=== PATIENT | male | born 1955 | race Caucasian/White ===

== ENCOUNTER 2018-07-27 03:55 | Outpatient (CLI) | payer BC, SELFPAY ==
--- NOTE | 2018-07-27 09:27 | DI.RAD_ITS ---
SYMPTOM/DIAGNOSIS: SHOULDER PAIN, M25.512 LEFT SHOULDER: Glenohumeral joint space narrowing and sclerosis and periarticular hypertrophic spurring are demonstrated. There is a tiny calcification in the soft tissues adjacent to the greater tuberosity consistent with peritendinitis calcaria. Mild AC joint DJD is noted as well. IMPRESSION: Severe degenerative changes involving the left shoulder are demonstrated.
== END 2018-07-27 04:15 ==
PROVIDERS: PCP Internal Medicine; Visit Provider Internal Medicine
DX: M25.512 Pain in left shoulder (principal); M19.012 Primary osteoarthritis, left shoulder
CPT/HCPCS: 73030

== ENCOUNTER 2019-03-07 10:23 | Outpatient (CLI) | payer BC, SELFPAY ==
--- NOTE | 2019-03-07 10:11 | DI.RAD_ITS ---
EXAM: XR SHOULDER RT COMPLETE 2+V INDICATION: right shoulder pain. COMPARISON: No prior for comparison. TECHNIQUE: 2D digital imaging was performed. FINDINGS: At the glenohumeral joint, there is moderate joint space narrowing and subchondral sclerosis. There i s an osteophyte seen at the inferior aspect of the humeral head. There are mild hypertrophic changes seen at the acromioclavicular joint. No acute fracture or dislocation is seen. The soft tissues are unremarkable. IMPRESSION: Moderate degenerative changes of the right shoulder.
== END 2019-03-07 10:43 ==
PROVIDERS: PCP Internal Medicine; Visit Provider Physician Assistant
DX: M25.511 Pain in right shoulder (principal); M19.011 Primary osteoarthritis, right shoulder
CPT/HCPCS: 73030

== ENCOUNTER 2020-04-30 13:24 | Outpatient (CLI) | payer OTHER, SELFPAY ==
--- NOTE | 2020-04-30 11:45 | DI.RAD_ITS ---
EXAM: XR KNEE LT 4V+ CLINICAL HISTORY: knee pain. TECHNIQUE: 2D digital imaging was performed. COMPARISON: No previous for comparison. FINDINGS: BONES: No acute fracture is present. No bony destructive lesion is seen. JOINTS: The knee is normally aligned. There is a joint effusion. Moderate degenerative changes are s een in all 3 joint compartments of the knee characterized by joint space narrowing, marginal osteophy verenice and chondrocalcinosis. SOFT TISSUE: There are broken orthopedic wires within and around the patella consistent with prior in ternal fixation. There is a 2 cm broken wire in the soft tissues medial to the femoral condyle. The re is a a 3.5 cm broken wire in the soft tissues anterior to the proximal tibia. IMPRESSION: 1. Findings of prior patellar surgery. Broken orthopedic wires are seen in the round the patella and within the soft tissues. 2. There are 2 broken wires seen in the soft tissues around the knee. One lies medial to the medial femoral condyle. The 2nd lies anterior to the anterior tibial tuberosity. 3. Moderate osteoarthritis. Joint effusion. DATA REPOSITORY: RADIATION DOSE DELIVERED:
== END 2020-04-30 13:44 ==
PROVIDERS: PCP Internal Medicine; Referring Provider Internal Medicine; Visit Provider Physician Assistant
DX: M17.12 Unilateral primary osteoarthritis, left knee (principal); T84.498A Other mechanical complication of other internal orthopedic devices, implants and grafts, initial encounter; M25.562 Pain in left knee
CPT/HCPCS: 73564

== ENCOUNTER 2020-05-14 10:25 | Outpatient (CLI) | payer OTHER, SELFPAY ==
--- NOTE | 2020-05-14 10:00 | DI.RAD_ITS ---
EXAM: XR KNEE LT 3V AP,LAT,BETINA CLINICAL HISTORY: F/u. TECHNIQUE: 2D digital imaging was performed. COMPARISON: CR CHEST 2 VIEWS PA,LAT from 05/31/2012 CR XR KNEE LT 4V+ from 04/30/2020 FINDINGS: BONES: No acute fracture is present. No bony destructive lesion is seen. There again seen broken wir es associated with the prior patellar repair. JOINTS: The knee is normally aligned. There is a small joint effusion. Moderate degenerative changes are seen in the knee characterized by joint space narrowing and periarticular spurring. Chondrocalc inosis is present. SOFT TISSUE: There has been interval removal of the broken wire which was anterior to the tibial tube rosity. The wire in the soft tissues medial to the medial femoral condyle is still present. IMPRESSION: 1. Interval removal of the wire previously seen anterior to the tibial tuberosity. 2. Stable wire in the soft tissues medial to the knee. DATA REPOSITORY: RADIATION DOSE DELIVERED:
== END 2020-05-14 10:45 ==
PROVIDERS: PCP Internal Medicine; Referring Provider Internal Medicine; Visit Provider Student in an Organized Health Care Education/Training Program
DX: T84.498A Other mechanical complication of other internal orthopedic devices, implants and grafts, initial encounter (principal)
CPT/HCPCS: 73562

== ENCOUNTER 2020-05-16 03:02 | Outpatient (CLI) | payer OTHER, SELFPAY ==
--- NOTE | 2020-05-16 09:00 | DI.CT_ITS ---
EXAM: CT UPPER EXTREMITY LT WO CLINICAL HISTORY: Preop planning/ templating,ARTHRITIS LT GLENOHUMERAL JOINT,M19.012. TECHNIQUE: Imaging Protocol: Axial computed tomography images with coronal and sagittal reformatted images were created and reviewed. COMPARISON: No exams were available for comparison FINDINGS: Multiple contiguous axial images of the left shoulder were obtained for pre-surgical planning. Gail beck degenerative changes are seen at the glenohumeral joint with joint space narrowing, subchondral scl erosis and cysts and periarticular spurring. IMPRESSION: Marked osteoarthritis of the left glenohumeral joint. RADIATION DOSE DELIVERED: 786.56mGy.cm Total DLP 786.56mGy.cm Total DLP DATA REPOSITORY: All CT scans at this facility are submitted to the National Radiology Data Registry (NRDR) Dose Index Registry (DIR) with the [employer] ([employer]). RADIATION OPTIMIZATION: All CT scans at this facility use at least one of these dose optimization te chniques: automated exposure control; mA and/or kV adjustment per patient size (includes targeted exa ms where dose is matched to clinical indication); or iterative reconstruction.
== END 2020-05-16 03:22 ==
PROVIDERS: PCP Internal Medicine; Visit Provider Student in an Organized Health Care Education/Training Program
DX: M19.012 Primary osteoarthritis, left shoulder (principal)
CPT/HCPCS: 73200

== ENCOUNTER 2021-01-07 01:37 | Outpatient (CLI) | payer OTHER, SELFPAY ==
[2021-01-07 11:23] LABS: Source Nasal/Nares
[2021-01-07 14:14] LABS: COVID-19 PCR Negative (Negative)
== END 2021-01-07 01:38 | disposition home or self-care (01) ==
LOC: LBO 01:37
PROVIDERS: PCP Internal Medicine; Visit Provider Student in an Organized Health Care Education/Training Program
DX: Z20.822 Contact with and (suspected) exposure to COVID-19 (principal); Z01.818 Encounter for other preprocedural examination
CPT/HCPCS: 87635

== ENCOUNTER 2021-01-09 06:21 | Inpatient (IN) | payer OTHER, SELFPAY ==
[2021-01-09] VITALS (14 sets, daily range): BP systolic 104–140; BP diastolic 56–88; PULSE 62–93; RESP 12–20; TEMP 36.2–36.9; O2SAT 94–98; BMI 25.0
--- NOTE | 2021-01-09 | DI.RAD_ITS ---
Exam(s) XR KNEE LT 1V EXAM: XR KNEE LT 1V CLINICAL HISTORY: Postop. TECHNIQUE: 2D digital imaging was performed of the left knee. One view was obtained. AP view was o btained. COMPARISON: CR XR KNEE LT 3V AP,LAT,BETINA from 05/14/2020 FINDINGS: BONES: No acute fracture is present. No bony destructive lesion is seen. JOINTS: The knee is normally aligned. No joint effusion is seen. There are mild degenerative changes seen in the knee with periarticular spurring present. SOFT TISSUE: The previously seen wire in the medial soft tissues has been removed. There are again s een broken wires in the patella. IMPRESSION: Interval removal of the wire from the medial soft tissues. DATA REPOSITORY: RADIATION DOSE DELIVERED:
[2021-01-09] MEDS: Lactated Ringers 1,000 ML 100 ML IV ×2 (06:41→13:25)
--- NOTE | 2021-01-09 07:01 | W.ANESPRE ---
General Info Date of Service Date Performed: 01/09/21 Height: 5 ft 8 in Weight: 74.7 kg Body Mass Index (BMI): 25.0 Surgical Procedure: Operation Date: 01/09/21 07:40 Proposed Procedures Side Surgeon p REVERSE TOTAL SHOULDER AND ANY OTHER INDICATED PROCEDURE Left Fermin Flannery MD s Shoulder Bicep Tenodesis Left Fermin Flannery MD Meds Allergies and Home Medications Allergies Allergy/AdvReac Type Severity Reaction Status Date / Time No Known Allergies Allergy Verified 01/09/21 06:08 Home Medication Medication Instructions Recorded albuterol sulfate 2 puff INHALATION PRN PRN 06/12/13 azelastine-fluticasone [Dymista] 1 spry INHALATION PRN PRN 06/12/13 fluticasone propionate [Flovent 2 puff INHALATION PRN PRN 06/12/13 Hfa] aspirin 1 tab PO DAILY 06/14/14 acetaminophen 500 mg capsule 500 mg PO Q6H PRN #60 cap 04/30/20 celecoxib 100 mg capsule 100 mg PO BID PRN #90 cap 09/13/20 Current Visit Medications: Current Medications Generic Name Dose Route Start Last Admin Trade Name Freq PRN Reason Stop Dose Admin Ringer's Solution 1,000 mls @ 100 mls/hr 01/09/21 06:00 01/09/21 06:41 IV 02/07/21 23:59 100 mls/hr INFUSION MADY Administration Cefazolin Sodium 2,000 mg/ 100 mls @ 200 mls/hr 01/09/21 06:00 Sodium Chloride IVPB 01/09/21 16:00 PREOP MADY Tranexamic Acid 1,000 mg/ 60 mls @ 360 mls/hr 01/09/21 06:00 Sodium Chloride IVPB 01/09/21 16:00 PREOP MADY IV Miscellaneous Supplies 1 each 01/09/21 06:00 Iv Access IV 02/07/21 23:59 DIRECTED MADY Sodium Chloride 0 ml 01/09/21 06:00 Normal Saline Flush 10 Ml Syr IV 02/07/21 23:59 PRN PRN Sodium Chloride 0 ml 01/09/21 06:00 Normal Saline 10 Ml Vial IJ 02/07/21 23:59 DIRECTED PRN Sterile Water 0 ml 01/09/21 06:00 Water,Injection,Sterile 10 Ml Vial IJ 02/07/21 23:59 DIRECTED PRN PFSH Active Problems Active Problems: Problem Status Onset Code Arthritis of left glenohumeral joint M19.012 Left rotator cuff tear M75.102 Tendinitis of long head of biceps brachii of left shoulder M75.22 Contracture of left shoulder M24.512 Bursitis of left shoulder M75.52 Bursitis of right shoulder M75.51 Contracture of right shoulder M24.511 Tendonitis of long head of biceps brachii of right shoulder M75.21 Rotator cuff tear, right M75.101 Arthritis of right glenohumeral joint M19.011 Painful orthopaedic hardware T84.84XA Exposed orthopaedic hardware T84.498A History of patellar fracture Z87.81 Medical History Medical History Asthma Exposed orthopaedic hardware left patellar ORIF wire TIA (transient ischemic attack) (~04/2009) Pt. stated the only thing is required to do for this was take a full strength aspirin 325 mg daily. No residual effects, weakness or cognitive deficits stated by pt. Surgical History Surgical History History of patellar fracture Left patella s/p ORIF - 1980 Tobacco Smoking/Tobacco Use Status: Current-Occasional Tobacco Type: cigarettes Alcohol Alcohol Intake: current Alcohol intake frequency: a few times a week Substance Use Substance use: Never Substance use type: does not use Vital Signs and Lab Results Vital Signs Most Recent Vital Signs in EMR: Most Recent Vital Signs Temp Pulse Resp BP Pulse Ox 36.3 C L 75 18 140/88 96 01/09/21 06:00 01/09/21 06:00 01/09/21 06:00 01/09/21 06:00 01/09/21 06:00 Lab Results Blood Type / Crossmatch: No Data to Display Complete Blood Count: No Data to Display Complete Metabolic Panel: No Data to Display Liver Function Panel: No Data to Display Coagulation Panel: No Data to Display Cardiac Panel: No Data to Display Arterial Blood Gas: No Data to Display Venous Blood Gas: No Data to Display Pancreas Panel: No Data to Display Thyroid Panel: No Data to Display Infectious Disease: Coronavirus (COVID-19)(PCR) Negative (Negative) 01/07/21 10:01/07/21 Coronavirus 2019 Source Nasal/Nares 01/07/21 10:26 01/07/21 Blood Cultures: No Data to Display Toxicology Panel: No Data to Display Imaging and Studies Imaging and Studies Echocardiogram Summary: 05/21/2009: EF 65%, Normal valves. Anesthesia Assessment and Plan Anesthesia History Personal History: No History of Anesthesia Complications Family History: No Family History of Anesthesia Complications Exercise Tolerance Exercise Tolerance: Metabolic Equivalents>4 Pertinent Negatives Pertinent Negatives: No Symptoms of GERD Cardiac & Pulmonary Exam Cardiac Exam: Normal S1/S2 Heart Sounds Pulmonary Exam: Clear Bilateral Breath Sounds Airway Exam Known Difficult Airway: No Mallampati Class: 2 Mouth Opening: Normal (> 3cm) Thyromental Distance: Greater than 3 cm Neck Range of Motion: Full ROM Neck Circumference: Normal Teeth Condition: Removable Dentures/Plates Upper (Upper left, already removed ) ASA Classification ASA Score: ASA 2 Emergency Case?: No NPO Status NPO Status: NPO Clears >2 hours, Solids >8 hours Anesthesia Plan Resuscitation Status: Full Code Anesthesia Technique: General Anesthesia Airway Planned: Endotracheal Tube Pain Management: Surgeon and patient request nerve block Monitors Used: Standard Monitors
[2021-01-09] MEDS: ceFAZolin 2,000 MG in Normal Saline 100 ML 200 MG IVPB (07:45)
--- NOTE | 2021-01-09 09:04 | W.ANESNERVE ---
Nerve Block Single Injection Procedure Date and Time Date Performed: 01/09/21 Procedure Start: 07:12 Location Where Procedure Performed Procedure Location: PACU Reason Performed: Postoperative Analgesia Requesting Provider: Fermin Flannery Timeout Performed Timeout Performed: Yes Monitoring Used ECG, Blood Pressure and SpO2 Sterility Sterility: Hand Hygiene, Surgical Cap, Surgical Mask, Sterile Gloves and Chlorhexidine Sedation Given During Procedure Sedation Given (Indicate Dose Given): Versed IV Dose:: 2 mg Patient Mental Status Patient Mental Status: Sedate with meaningful communication Nerve Block 1st Nerve Block: Laterality: Left Block Type: Supraclavicular Needle / Catheter Used: 100mm SonoPlex II Local Anesthetic Bolus (Indicate Dose Given): Lidocaine used for local infiltration of skin, Injected in 3-5ml increments after negative blood aspiration, Bupivacaine 0.25% Dose:: 10 ml and Exparel Dose:: 10 ml Additives (Indicate Dose Given): None Ultrasound: Sterile probe cover and gel used Ultrasound Image Saved?: Yes Nerve Stimulator: Not Used Paresthesia: None Procedure Tolerated: No Complications and Patient tolerated well Procedure Outcome: Successful Performed By: Akira Vasquez Supervised By: Genaro Garcia
--- NOTE | 2021-01-09 13:13 | W.PM.OP ---
Date of service: 01/09/21 Time of Service: 08:00 Operative Note Operative Note DATE OF PROCEDURE: 01/09/21 PRE-OP DIAGNOSIS: Left shoulder: 1. End-stage glenohumeral arthritis 2. Long head of the biceps tendinopathy 3. Partial rotator cuff tearing Left knee: 4. Prominent retained orthopedic hardware: Cerclage wire from prior patella surgery POST-OP DIAGNOSIS: same PROCEDURE: Left shoulder: 1. Reverse total shoulder arthroplasty, CPT # 69273 2. Open biceps tenodesis, CPT # 39672 Left knee: 3. Removal of deep hardware, CPT #30817: Buried wire The veterinary assistant was medically required as this procedure involves retraction, protection of neurovascular structures, and manipulation of multiple instruments and implants at the same time, which cannot be done without a skilled veterinary assistant. SURGEON: Fermin Flannery HAND PLUG SHAPER: Jacoby Dalton ANESTHESIA TYPE: Local By Surgeon, General LMA/ETT and Primary Nerve Block Refer to Anesthesia Record ESTIMATED BLOOD LOSS: 150 PATHOLOGY: none sent COMPLICATIONS: None Patient was transported to: PACU Patient's condition: stable Implants: [employer] modular glenoid system baseplate 24 mm, 20 degree full augment [employer] modular glenoid system central post 25 mm [employer] modular glenoid system peripheral inferior nonlocking screw 4.5 x 28 mm, locking screws 5.5 x 40 mm superior, 20 mm posterior, 16mm anterior [employer] modular glenoid system glenosphere 39 +4 mm lateralized [employer] humeral stem 135 degrees size 8 [employer] suture cup size 39 neutral [employer] spacer size 39 +9 mm [employer] humeral insert size 39 +3 mm Indications: Please see complete medical record for details. Findings: Severe glenohumeral arthritis complete loss articular cartilage, deformity, and worse posterior bone loss then on imaging done in the past. Moderate anterior capsular contraction. Degeneration thickening and partial about 50% tearing articular sided supraspinatus, and to a lesser extent the infraspinatus. Significant long head of the biceps tendon tenosynovitis, edema, and fraying. Procedure Description: In the operating room, general anesthesia was induced. The patient was positioned beachchair on the operating room table. All bony prominences were well-padded. Preoperative antibiotics were administered. The shoulder was prepped and draped in the usual sterile fashion for shoulder arthroplasty. The correct patient, procedure, and side of the procedure were all verified prior to incision. The deltopectoral approach was taken to the anterior shoulder. Care was taken to bluntly dissect the interval between the deltoid and pectoralis major muscles and to identify the cephalic vein within its fat stripe. The the vein was mobilized medially. Subdeltoid space and conjoined tendon were freed of adhesions. The long head of the biceps tendon was identified just lateral to the lesser tuberosity. The uppermost margin of the pectoralis major tendon was released from the proximal humerus. The long head of the biceps tendon was tenodesed in situ using suture tape in a [id number] fashion securing it superior margin the pectoralis major tendon. The biceps tendon was amputated and followed proximally to identify the rotator interval. A subscapularis peel was performed taking care to release the entirety tendon in a full-thickness fashion from superior to inferior and lateral to medial while bringing the arm gradually into external rotation. Care was taken to avoid the axillary nerve by only working on the bone inferiorly and medially. The subscapularis was tagged using suture tape in a Trey-Blaine fashion with stitch centrally at the medial footprint of the tendon. The stitche were used to confirm appropriate mobilization of the subscapularis tendon after gentle blunt dissection was used to free up the space anterior and posterior to it. The supraspinatus and infraspinatus were identified and debrided significant partial-thickness tearing and removing thickened, degenerative tissue, and underlying osteophytes. Appropriate coagulation was achieved especially inferiorly. The surgical neck was cut using an oscillating saw and bone brought back table in case there was a need for future bone grafting. The proximal humeral protection plate was used to provisionally confirm suture cup and glenosphere size and then gently impacted over the bone cut. Attention was then turned to the glenoid and retractors were placed and a 360 degree release performed using the long head of the biceps remnant to remove soft tissue about the glenoid rim. The axillary nerve was palpated but not exposed inferior and traversing from beneath the subscapularis tendon appropriately below the scapular neck heading posteriorly. Care was taken inferiorly to work on bone only between 5 and 7:00 o'clock and bluntly elevate tissues inferiorly. The glenoid was decorticated soft tissue and a minimal amount of residual cartilage. Once adequate exposure had been achieved, the VIP guide was placed on the glenoid and used to confirm placement and trajectory of the central guidepin for the augmented reverse baseplate given more significant bone loss, narrowing, and posterior deformity then on the imaging and VIP plan done months ago. The guidepin was inserted through the VIP guide and advanced just through the far cortex ensuring adequate central post length. The guidewire was inspected and although appropriate based on the VIP plan, was slightly to posterior accounting for the additional bone loss. The 20 degree offset sizer was then used to also confirm the need for slightly more anteversion and inferior tilt. A second guidewire was inserted a couple millimeters anterior and inferior with slightly more anteversion and inferior tilt and inserted carefully in a bicortical fashion. The initial guidewire was moved. The depth gauge was used to confirm appropriate central post length. The airplane pilot drill was then used followed by the eccentric 20 degree reamer taking care to orient with the marked maximal defect and remove only a couple millimeters bone anterior inferiorly as planned. The eccentrically room face was confirmed with the baseplate radio program checker. The drill for the central post was used and was then used and withdrawn with the guidewire in place confirming appropriate length. The baseplate was assembled on the back table, carefully oriented with the deformity, and impacted fully onto the glenoid surface. Testing the glenoid baseplate resulted in movement through the entire scapula. The inferior screw was directed in the planned anterior-inferior trajectory optimizing screw length for a nonlocking screw, which had excellent fixation and compression of baseplate to scapula and ensured appropriate inferior tilt. The locking guide and drill was then used to drill for the superior, posterior, and anterior screws using depth gauge to confirm appropriate screw length and each was gently engaged and then locked. The over baseplate reamer was used to confirm adequate peripheral reaming had been achieved especially anteriorly and inferiorly. The preselected lateralized glenosphere was applied with the operations developer and then impacted to engage the Alegre taper. It was then locked with appropriate ountersinking of the setscrew. The glenosphere was inspected and found to have good fit, appropriate positioning, and no soft tissue or bony impingement especially inferiorly. Attention was then turned back to the proximal humerus, which was delivered from the wound and maintained in external rotation. Reamers were started appropriately posterior to the bicipital groove taking care to maintain lateralized alignment so as to be straight in line with the humeral canal. Reaming was done from size 5, 6, to 7. The broaches were sequentially used to open the proximal humerus starting with a size 5 and going up to size 8 and sunk to the appropriate depth while maintaining approximately 30 degrees retroversion. The size 8 had good metaphyseal fit and rotational control the humerus. A enutral offset guide was used to ream for the suture cup which appropriately preserved greater tuberosity and intact rotator cuff footprint. The humeral trial cup was connected. Trialing was commenced with +3mm liner. The shoulder was reduced and taken through range of motion. It was felt to moderately loose in terms of tension on the conjoined tendon, deltoid, and stability. Trialing components were then used to build up to +12 mm combination of spacer and liner. The shoulder was reduced and felt to have good stability with improved appropriate tension of the deltoid and conjoined tendon. Range of motion was tested past 90 degrees forward elevation, 60 degrees external rotation, internal rotation to the patient's side, and there is no appreciable notching with the arm in full adduction. This combination of implants was stable even with the patient paralyzed. The trial components were removed from the proximal humerus. The wound was copiously irrigated with normal saline. A 2 mm drill was used to drill 2 drill holes in the bicipital groove for later subscapularis suture passage repair. The the proximal humeral stem and suture cup were assembled on the back table. They were brought over to the proximal humerus. 4 pairs of suture tape were then passed through the suture cup for a medial and lateral speed bridge type repair with the lateral row pairs being brought through the previously drilled bone tunnels. Humerus and suture cup were appropriately impacted into the proximal humerus. There were tested and found of excellent rotational control and fixation. Trial reduction for stability and range of motion was done again with the +12 mm combination spacer and liner, which demonstrated excellent stability and range of motion without placing undue tension on the conjoined tendon or deltoid. The trial spacer liner removed and the definitive spacer and liner connected. Shoulder was reduced and these final implants demonstrated appropriate range of motion and stability. The shoulder was copiously irrigated with normal saline and then irrisept. Vancomycin powder was distributed deeply about the shoulder and through subcutaneous tissues. The arm was placed in 45 degrees of external rotation. The subscapularis was reduced and repaired over the implant to the lessor tuberosity using the pairs medial and lateral suture tapes and a speed bridge fashion with excellent tissue reduction and compression. The arm was taken past 60 degrees of external rotation without any displacement of the subscapularis repair. The rotator interval was closed laterally using suture tape figure of 8 between the subscapularis and supraspinatus. Range of motion was not restricted after these repairs. The deltopectoral interval was closed proximally between the coracoid and acromion using 0 Vicryl single stitch in the remainder allowed to reapproximate itself. Subcutaneous tissue was irrigated then closed using 2-0 Monocryl in a buried interrupted fashion. The skin was closed using 3-0 Monocryl in a buried subcuticular fashion. Skin glue was applied to the incision. A silver impregnated bandage was placed over the incision. The left knee was then sterilely prepped and draped. The end of a prominent buried cerclage wire was easily palpated at the marked location. 5 cc of 0.5% bupivacaine containing epinephrine was infiltrated about the area of prominence. A small stab incision was made using a 15 blade. A tonsil was then used to spread and secure the buried wire which was then removed in entirety. A single buried 3-0 Monocryl stitch was used to close this incision followed by application of skin glue and a sterile Band-Aid. The extremity was placed into a shoulder immobilizer. The patient awoke from anesthesia without complication and was taken to the recovery room in stable condition.
--- NOTE | 2021-01-09 13:15 | DI.RAD_ITS ---
Exam(s) XR SHOULDER LT COMPLETE 2+V EXAM: XR SHOULDER LT COMPLETE 2+V CLINICAL HISTORY: Postop. TECHNIQUE: 2D digital imaging was performed of the left shoulder. Three views were obtained. Grash ey and Y views were obtained. COMPARISON: CR XR shoulder LT complete 2+V from 07/27/2018 FINDINGS: BONES: No acute fracture is present. No bony destructive lesion is seen. JOINTS: No dislocation present. The patient is now status post left total reverse shoulder replaceme nt. The orthopedic hardware appears in good position. SOFT TISSUE: Postsurgical changes are seen in the soft tissues. IMPRESSION: Status post left total reverse shoulder replacement. DATA REPOSITORY: RADIATION DOSE DELIVERED:
[2021-01-09] MEDS: Ketorolac 15 MG/ML VIAL IVP (13:51)
--- NOTE | 2021-01-09 13:51 | W.ANESPOSTOP ---
Postoperative Evaluation Date, Time and Location Date Performed: 01/09/21 Time Performed: 14:00 Patient Location: PACU Vital Signs Most Recent Imported Vital Signs: Most Recent Vital Signs Temp Pulse Resp BP Pulse Ox 36.6 C 78 13 120/62 96 01/09/21 13:45 01/09/21 13:45 01/09/21 13:45 01/09/21 13:45 01/09/21 13:45 Pain Score Most Recent Pain Score: Most Recent Pain Score Pain Level 1 01/09/21 13:45 Assessment Mental Status: Awake (Alert & Oriented to Patient Baseline) Airway and Respiratory Function: Patent airway with normal (patient baseline) respiratory exam Cardiovascular Function: Hemodynamically Stable Hydration Status: Adequately Hydrated Nausea & Vomiting: No Nausea or Vomiting Pain: Pt. Denies Any Pain Peripheral Nerve Block: Regional nerve block not resolved at time of post operative discharge
--- NOTE | 2021-01-09 15:26 | W.PM.PROGNOT ---
Date of Service Date of service: 01/09/21 Time of Service: 15:04 Assessment and Plan Assessment and plan (1) Arthritis of left glenohumeral joint: Status: Acute Assessment and plan: 65-year-old male postop day #0 status post left reverse total shoulder arthroplasty with biceps tenodesis and left knee removal of hardware Complete 24 hours postoperative antibiotics Discontinue IV fluid Pain control-Multimodal as ordered. Physical therapy and Occupational Therapy ordered: Reverse TSA protocol. Should remove sling while in bed or resting. Recommend sling when ambulatory or out of home. Passive range of motion to the shoulder. Active range of motion elbow, wrist, and hand. May use upper extremity gently for all essential ADLs including active range of motion within a limited arc with light weightbearing. Continue mechanical DVT prophylaxis with SCDs and/or VIN hose Start 81 mg ASA 24 hours postoperative Plan discharge home tomorrow (2) Left rotator cuff tear: Status: Acute Qualifiers: Rotator cuff tear extent: unspecified tear extent Rotator cuff tear trauma status: unspecified whether traumatic Qualified Code(s): M75.102 - Unspecified rotator cuff tear or rupture of left shoulder, not specified as traumatic (3) Tendinitis of long head of biceps brachii of left shoulder: Status: Acute (4) Painful orthopaedic hardware: Status: Acute Subjective Subjective Interval history since last seen: No significant issues, complaints or concerns. Nerve block working well. No pain.. Exam Narrative Exam Narrative: Resting comfortably in hospital bed. No distress. Alert and oriented Breathing comfortably on room air 2+ left radial pulse Significant nerve block motor and sensory about distal left upper extremity. Dullness paresthesias about the shoulder including axillary nerve. All arm and forearm compartment soft. No significant bruising or edema. Bandage clean dry intact. Left medial knee local anesthetic numbness in place. Band-Aid clean dry intact. Objective Last Vital Signs Temp 97.3 F L 01/09/21 06:00 Pulse 75 01/09/21 06:00 Resp 18 01/09/21 06:00 BP 140/88 01/09/21 06:00 Pulse Ox 96 01/09/21 06:00
[2021-01-09] MEDS: ceFAZolin 1 GM/50 ML BAG IV (17:53)
[2021-01-09] MEDS: Normal Saline 500 ML 100 ML IV (17:53)
[2021-01-10 00:59] VITALS: BP 137/74; PULSE 77; RESP 17; TEMP 37; O2SAT 95
[2021-01-10] MEDS: ceFAZolin 1 GM/50 ML BAG IV ×2 (02:12→09:56)
[2021-01-10 03:46] VITALS: BP 130/75; PULSE 79; RESP 18; TEMP 37; O2SAT 96
[2021-01-10 07:24] VITALS: BP 154/81; PULSE 73; RESP 18; TEMP 36.8; O2SAT 97
--- NOTE | 2021-01-10 07:24 | W.PM.DS.N ---
Date of service: 01/10/21 Time of Service: 07:00 DS: Diagnosis Discharge Diagnosis (1) Arthritis of left glenohumeral joint: Status: Acute (2) Left rotator cuff tear: Status: Acute (3) Tendinitis of long head of biceps brachii of left shoulder: Status: Acute (4) Painful orthopaedic hardware: Status: Acute Discharge Plan Disposition Patient Disposition: HOME Condition: Stable Discharge Details Reason For Visit: Left shoulder and knee surgery Admit Date/Time: 01/09/21 06:21 Admit Provider: Fermin Flannery Attending Provider: Fermin Flannery Primary Care Provider: Noel Urena Hospital Course Hospital Course: Left reverse TSA and left knee removal of hardware 01/09/2021. Postoperative course uncomplicated. Home Meds and New Rx's Prescriptions: New naproxen 250 mg tablet 250 - 500 mg PO BID PRN (Reason: Moderate pain or swelling) Qty: 60 RF: 0 aspirin 81 mg tablet,delayed release (DR/EC) 81 mg PO DAILY 14 Days Qty: 14 RF: 0 oxycodone 5 mg tablet 5 - 10 mg PO Q4H PRN (Reason: moderate to severe pain) Qty: 18 RF: 0 Continued acetaminophen 500 mg capsule 500 mg PO Q6H PRN (Reason: pain) Qty: 60 RF: 1 Flovent HFA 12 GM HFA aerosol inhaler 2 puff Inhalation PRN PRNRF: 0 albuterol sulfate 8.5 GM HFA aerosol inhaler 2 puff Inhalation PRN PRNRF: 0 azelastine-fluticasone [Dymista] 23 GM spray,non-aerosol 1 spry Inhalation PRN PRNRF: 0 Discontinued celecoxib 100 mg capsule 100 mg PO BID PRN (Reason: pain) Qty: 90 RF: 2 aspirin 325 MG tablet 1 tab PO DAILY RF: 0 Discharge Instructions Additional Instructions: Surgery: Left reverse total shoulder arthroplasty with biceps tenodesis and left knee removal of hardware Activity: Do not lift anything heavier than a coffee. You should keep your arm at your side in a neutral position at all times except for gentle range of motion exercises, physical therapy, and essential activities. You should use the sling whenever you are out of the house. You may have to adjust the abduction pillow or remove it for comfort. At home it is best to remove the sling and rest the arm on a pillow at your side or support the operative side with your other hand. A physical therapy prescription will be sent electronically to start in 2-3 weeks. Reverse TSA Protocol: Postoperative Weeks 0-6 ?Immobilization: Sling may be removed for therapeutic exercises, resting in bed or chair, and bathing ?Motion exercises: Pendulum exercises, elbow range- of-motion exercises, wrist [id number] exercises, and garage door service technician strengthening ?Restrictions: No active internal rotation or backwards extension Postoperative Weeks 6-12 ?Immobilization: Sling discontinued ?Motion exercises: Shoulder passive range of motion, advancing to active-assisted range of motion, and finally active range of motion with a goal of forward flexion to 90? and external rotation of 20? ?Strengthening exercises: Light, resisted forward flexion, external rotation, and abduction limited to isometric exercises and therapy bands with concentric motions only. Continue garage door service technician strengthening ?Restrictions: No resisted internal rotation or backwards extension. No scapular retraction exercises with therapy bands Postoperative Months 3-12 ?Motion exercises: Increase [id number] exercises to achieve full motion, with passive stretching at end ranges ?Strengthening: Begin resisted, internal rotation and backwards extension initially with isometric exercises advancing to light therapy bands and then weights. Advance other shoulder strengthening exercises to include the rotator cuff, deltoid, and scapular stabilizers. Advance to functional strengthening, including plyometric exercises and core strengthening. Prescriptions: Aspirin 81 mg take 1 daily to prevent a blood clot for 2 weeks Naproxen 250 mg take 1-2 every 12 hours with a meal as needed for moderate pain Oxycodone 5 mg take 1-2 every 4-6 hours as needed for severe pain You may use moaq-[id number] Tylenol (acetaminophen) as needed for mild pain. These pain medications may be taken all at once or in different combinations as needed. Also, recommend Colace (docusate) as a stool softener as surgery and pain medicine cause constipation. Dressings: Leave dressing in place until follow-up. Keep clean and dry at all times. No showers please. Follow-up: 10-[address] Flannery (01/22/21 at 10:30 AM) Please call the office during business hours with any questions or concerns. Let us know right away if you develop any redness, drainage, fevers, chest pain, or trouble breathing. Do not drink alcohol or drive for at least 24 hours after anesthesia. Referrals: Fermin Flannery MD [ [facility] STAFF PHYSICIAN] - Activity:: RTSA protocol Equipment/Supplies:: Shoulder immobilizer Diet:: As Tolerated Discharge Orders Discharge Orders: Discharge Order (Routine); Ordered 01/10/21 Ordered By: Fermin Flannery DS: Summary Time Spent with Patient providing and/or coordinating discharge services: Less than 30 minutes Status at Discharge Functional status at discharge: independent ambulation Overall status at discharge: patient is progressing back to baseline Mental Status: mental status grossly normal Speech and Movement: speech and movement normal Mood: congruent mood Affect: normal affect Exam Narrative Exam Narrative: Resting comfortably in hospital bed. No distress. Completely alert, oriented, and mentating at baseline level. Personality stable with prior to surgery. Good recollection of events pre surgery and post recovery. Appears and feels like himself. Breathing comfortably on room air 2+ left radial pulse Moderate nerve block motor and sensory about distal left upper extremity. Less still paresthesias about the shoulder including axillary nerve. All arm and forearm compartment soft. No significant bruising or edema. Bandage clean dry intact. Demonstrate intact motor and hand, PIN, ulnar, and musculocutaneous nerves. Left medial knee local anesthetic wore off. Sensory intact without discomfort. Band-Aid clean dry intact. Psych Mental Status: mental status grossly normal Speech and Movement: speech and movement normal Mood: congruent mood Affect: normal affect DS: Data Vitals/I&O Vitals and I&O: Vital Signs Temperature 97.3 F L 01/09/21 06:00 Pulse 75 01/09/21 06:00 Pulse Rhythm Regular 01/09/21 06:00 Respiratory Rate 18 01/09/21 06:00 Respiratory Depth Normal 01/09/21 06:00 Blood Pressure 140/88 01/09/21 06:00 Pulse Oximetry 96 01/09/21 06:00 Oxygen Delivery Method Room Air 01/09/21 06:00 Oxygen Flow Rate 0 01/09/21 06:00 Intake & Output 01/08/21 01/08/21 01/09/21 11:59 23:59 11:59 Weight 163 lb 0.016 oz 164 lb 10.965 oz [facility] Medical History (Updated 01/09/21 @ 15:04 by Fermin Flannery MD) Asthma Contracture of left shoulder Exposed orthopaedic hardware left patellar ORIF wire TIA (transient ischemic attack) (~04/2009) Pt. stated the only thing is required to do for this was take a full strength aspirin 325 mg daily. No residual effects, weakness or cognitive deficits stated by pt. Surgical History History of patellar fracture Left patella s/p ORIF - 1980 Social History Smoking/Tobacco Use Status: Current-Occasional Tobacco Type: cigarettes Smoking risk assessment performed?: Yes Alcohol Intake: current Alcohol Intake frequency: a few times a week Drug use: Never Substance use type: does not use Current gender identity: male Do you feel safe at home: Yes Do you feel safe in your relationship?: Yes
[2021-01-10] MEDS: Aspirin E.C. 81 MG TABEC PO (07:58)
[2021-01-10] MEDS: Acetaminophen 325 MG TAB 650 MG PO (09:06)
--- NOTE | 2021-01-10 09:09 | OTIE_ITS ---
Occupational Therapy Notes Inpatient Occupational Therapy Evaluation Date: 01/10/21 Referring Doctor:Fermin Flannery MD Precautions: Standard, Full PATIENT PROFILE/ADMITTING DIAGNOSIS: Pt is a 65 year old male who was admitted for 1 night stay after a Left reverse TSA and left knee removal of hardware 01/09/[address] Flannery. Past Medical History: Medical History (Updated 04/30/20 @ 17:48 by Kathryn Rainey) Exposed orthopaedic hardware left patellar ORIF wire TIA (transient ischemic attack) (~04/2009) Surgical History (Updated 04/30/20 @ 17:48 by Kathryn Rainey) History of patellar fracture Left patella s/p ORIF - 1980 Social History/Home Situation: Pt lives alone in a private home, he is (I) at his baseline level of function and recently bought a shower bench for post surgical intervention. He notes that he drives (I). Equipment owned/DME: shower bench SUBJECTIVE: Pt is agreeable to OT consult, he states that he is tired and sore. OBJECTIVE: General Observation: IV in (R) dorsal hand, (R) forearm, sling on (R) UE, ice pack Mental Status: A&Ox3 Pain: c/o pain in shoulder states he has felt is since last night ROM: RUE AROM WFL L UE NT STRENGTH: RUE 5/5 throughout LUE NT FUNCTIONAL MOBILITY/ADLS: Transfers Supine-sit (I) Sit-supine (I) Sit-Stand (I) Stand-sit (I) DRESSING OT provided education and training for adaptive equipment for UE/LE dressing including dressing stick and long handled shoe horn. OT educated pt on in first out last technique and provided pt with written and illustrated instructions. Pt is able to verbalize understanding to this. BALANCE: Static sitting Normal Dynamic Sitting Normal Static Standing Normal Dynamic Standing Normal ASSESSMENT: Patient is a 65-year-old male referred to occupational therapy services with diagnosis of 1. Reverse total shoulder arthroplasty 2. Open biceps tenodesis. Pt was seen for OT consult and assessment of his ADLs. OT provided education and training on don and doffing sling, shirt and pants/LE dressing as well as went over bathing routines. OT provided pt with adaptive equipment and pt was receptive to education and training provided. Plan is for pt to discharge home when medically cleared per MD. Patient is assessed as a Low 25550 complexity based on the following: History: see above Examination: see functional limitations Presentation: evolving Decision Making: low complexity GOALS N/A seen for OT consult only. PLAN OF CARE/TREATMENT PLAN: Discharge from skilled OT services. DISCHARGE RECOMMENDATIONS Home when medically cleared per MD. TREATMENT TIME/MINUTES/CODES 34798, 45123, 20 minutes (08:45) Kari Price OTR/L [facility]
--- NOTE | 2021-01-10 09:30 | IN_ITS ---
Date of service: 01/10/21 Time of Service: 09:30 PT Notes Visit Reasons: Left shoulder and knee surgery Physical Therapy Inpatient Initial Evaluation Date: 01/10/2021 Referring Doctor: Fermin Flannery MD PT Orders: PT CONSULT: [] Precautions: Fall. Standard. No active left shoulder internal rotation and extension. Patient Profile/Admitting Diagnosis: Tabatha is a 65-year-old male with end- stage glenohumeral arthritis, long head biceps tendinopathy, partial rotator cuff tearing, Marisa Pike MD with prominent retained orthopedic hardware from previous patellar surgery. He is status post reverse total shoulder arthroplasty on the left, open biceps tenodesis, and removal of deep orthopedic hardware from knee on postoperative day 1. PMHX: Medical History (Updated 09/17/20 @ 16:34 by Fermin Flannery MD) Exposed orthopaedic hardware left patellar ORIF wire TIA (transient ischemic attack) (~04/2009) Surgical History (Updated 04/30/20 @ 17:48 by Kathryn Rainey) History of patellar fracture Left patella s/p ORIF - 1980 Social History/Home Situation: Lives alone in a private home with one step to enter. Independednt with all aspects of ADLs prior to admission. Will have friends and neighbors who will provided assistance as needed. Equipment Owned/DME: L UE abduction sling. Subjective: Agreeable to PT consult. Pleasant and cooperative. Still reports some awkwardness in moving wrist and forearm due to effects from anesthesia. Reporst some end-of range discomfort in the L shoulder during passive movements. Objective: General Observation: Supine in bed. L UE supported by pillows. In NAD. Mental Status: Alert and oriented as to person, place, time, and purpose. Able to pay attention, focus, and respond appropriately. Pain: 2-3/10 in L shoulder with passive movements ROM: Right Upper Extremity: Shoulder Flexion WFL. Shoulder abduction WFL. Elbow flexion WFL. Wrist flexion WFL. Functional opening and closing of hand WFL. Left Upper Extremity: Shoulder segments of passive flexion up to 50 degrees with empty end-feel. Shoulder passive abduction up to 45 degrees. Elbow flexion actively to about 45 degrees and requires assitance to complete range. Wrist flexion WFL. Functional opening and closing of hand WFL. Right Lower Extremity: Hip flexion WFL. Hip abduction WFL. Knee flexion WFL. Ankle dorsiflexion WFL. Ankle plantarflexion WFL. Left Lower Extremity: Hip flexion WFL. Hip abduction WFL. Knee flexion WFL. Ankle dorsiflexion WFL. Ankle plantarflexion WFL. Strength: Right Upper Extremity: Shoulder flexors 5/5. Shoulder abductors 5/5. Elbow flexors 5/5. Elbow extensors 5/5. Cotton Bag Sewer strong. Left Upper Extremity: Shoulder flexors NT. Shoulder abductors NT. Elbow flexors 3-/5. Elbow extensors 5/5. Cotton Bag Sewer weak but functional. Right Lower Extremity: Hip flexors 5/5. Hip abductors 5/5. Knee flexors 5/5. Knee extensors 5/5. Ankle dorsiflexors 5/5. Ankle plantarflexors 5/5. Left Lower Extremity: Hip flexors 5/5. Hip abductors 5/5. Knee flexors 5/5. Knee extensors 5/5. Ankle dorsiflexors 5/5. Ankle plantarflexors 5/5. Bed Mobility/Transfers: Rolling independent Supine to sit independent Sit to supine independent Sit to stand independent Stand to sit with independent Gait: Instructed patient with level surface ambulation of 300 feet requiring no assistance. L UE in sling. Denies dizziness, headache, and chest pain throughout. Balance: Static Sitting: Normal Dynamic Sitting: Normal Static Standing: Normal Dynamic Standing: Good static Special Tests: Mobility Limitations Standardized Measure [facility] AM-PAC 6 clicks Basic Mobility Inpatient Short Form: Raw Score: 24 CMS Score: 0% deficit Informed Consent/Education: Patient was instructed in purpose of PT consult and plan of care. L rTSA protocol reviewed and performed with patient. Also readjusted and fitted L UE sling for patient to ensure comfort and support. Assessment: Limited L shoulder passive ROM with minimal pain at end range due to post-operative status. Post anesthesia effects still minimally limiting motor control at wrist and in the forearm. Patient presents with clinical signs and symptoms consistent with current/admitting diagnoses that have resulted to mobility limitations, gait instability, generalized weakness, and overall ADL decline as demonstrated by the following impairment level findings: 1. Decreased strength to L UE muscle groups 2. Pain at end range of motion Impairments are contributing to the following functional limitations: 1. Inability to fully use L UE due to post-operative restriction and post- anesthesia effects Patient is assessed as a 80185 low complexity based on the following: History: 65-year-old male with past medical history as indicated above Examination: Demonstrable impairment in strength, balance, and mobility level with underlying impairments and functional limitations as exhibited above as well as deficit score of 0% utilizing the [employer] Mobility Inpatient Short Form Presentation: Stable Decision Makin low complexity Goals: N/A. PT evaluation and 1-2 treatment session only for HEP instruction. Plan of Care/Treatment Plan: N/A. PT evaluation and 1-2 treatment session only for HEP instruction. DISCHARGE RECOMMENDATIONS: Home when medically cleared by orthopedic surgeon. Written instructions for HEP explained and provided for patient. No assistive ambulatory device needed. TREATMENT CODE/TIME: 12759 x 15 minutes, 04865 x 13 minutes for session 1. 99699 x 15 minutes for session 2. Thank you for the opportunity to participate in the care of this patient. Ashli Moe PT, DPT, CLT [facility] [place], [place]
[2021-01-10] MEDS: Normal Saline Flush 10 ML SYR IV ×2 (09:57→10:56)
[2021-01-10 11:15] VITALS: BP 118/76; PULSE 76; RESP 16; TEMP 36.6; O2SAT 96
[2021-01-10] MEDS: oxyCODONE 5 MG TAB PO (12:45)
--- NOTE | 2021-01-10 13:55 | CMDISCH_ITS ---
- If Service Date Differs Date of service: 01/10/21 Time of Service: 13:55 LACE Index Scoring Tool - Questions: Length of Stay (in days): 1 Acuity (Admit via E.D.?): No E.D. Visits: 1 - Answers: Total Score: 2 Risk of Readmission: Low Risk Care Management Discharge Reason for Hospitalization: Left shoulder and knee surgery. Discharge Plan: Discharge home via private vehicle with family friend. No new services needed at this time. Patient will follow up with Dr. Flannery and gautam porter plan of care. Patient/Family Education Needs: Review discharge instructions, limitations and plan to follow up with Dr. Flannery in 10-14 days. ask me three.
== END 2021-01-10 13:50 | disposition home or self-care (01) | DRG 483 ==
LOC: PDS 06:50 → MS 14:29
PROVIDERS: Admitting Provider Student in an Organized Health Care Education/Training Program; PCP Internal Medicine; Visit Provider Student in an Organized Health Care Education/Training Program
PROC: 0RRK00Z Replacement of Left Shoulder Joint with Reverse Ball and Socket Synthetic Substitute, Open Approach (ICD-10-PCS; CPT 23472; principal; 2021-01-09 07:30)
PROC: 0RRK00Z Replacement of Left Shoulder Joint with Reverse Ball and Socket Synthetic Substitute, Open Approach (ICD-10-PCS; CPT 23430; 2021-01-09 07:30)
DX: M19.012 Primary osteoarthritis, left shoulder (principal); T84.84XA Pain due to internal orthopedic prosthetic devices, implants and grafts, initial encounter; M75.102 Unspecified rotator cuff tear or rupture of left shoulder, not specified as traumatic; M75.22 Bicipital tendinitis, left shoulder; J45.909 Unspecified asthma, uncomplicated; Z86.73 Personal history of transient ischemic attack (TIA), and cerebral infarction without residual deficits; Z79.82 Long term (current) use of aspirin; F17.210 Nicotine dependence, cigarettes, uncomplicated
CPT/HCPCS: 23472; 23430; 20680; 76942; 97110; 97161; 73030; 73560; J0171; J0690; J1100; J1885; J2001; J2250; J2405; J2704

== ENCOUNTER 2021-01-22 11:16 | Outpatient (CLI) | payer OTHER, SELFPAY ==
--- NOTE | 2021-01-22 10:30 | DI.RAD_ITS ---
Exam(s) XR SHOULDER LT COMPLETE 2+V EXAM: XR SHOULDER LT COMPLETE 2+V CLINICAL HISTORY: Left rotator cuff tear f/u. TECHNIQUE: 2D digital imaging was performed of the left shoulder. Four images were obtained. Y-vie w and AP views were obtained. COMPARISON: CR XR SHOULDER LT COMPLETE 2+V from 01/09/2021 FINDINGS: BONES: No acute fracture is present. No bony destructive lesion is seen. JOINTS: No dislocation present. Stable postoperative changes of a left reverse total shoulder replace ment are present. SOFT TISSUE: There still postsurgical changes seen in the soft tissues. IMPRESSION: Stable left total shoulder replacement. DATA REPOSITORY: RADIATION DOSE DELIVERED:
== END 2021-01-22 11:17 | disposition home or self-care (01) ==
LOC: DIORS 11:16
PROVIDERS: PCP Internal Medicine; Referring Provider Internal Medicine; Visit Provider Student in an Organized Health Care Education/Training Program
DX: M75.102 Unspecified rotator cuff tear or rupture of left shoulder, not specified as traumatic (principal); Z47.1 Aftercare following joint replacement surgery; Z96.612 Presence of left artificial shoulder joint
CPT/HCPCS: 73030

== ENCOUNTER 2021-03-12 11:24 | Outpatient (CLI) | payer MEDICARE, SELFPAY ==
--- NOTE | 2021-03-12 10:15 | DI.RAD_ITS ---
Exam(s) XR SHOULDER LT COMPLETE 2+V EXAM: XR SHOULDER LT COMPLETE 2+V CLINICAL HISTORY: LEFT rotator cuff f/u TECHNIQUE: COMPARISON: CR XR SHOULDER LT COMPLETE 2+V from 01/22/2021 FINDINGS: Three views were obtained and show a reverse shoulder prosthesis in position. The components appear well seated. No other significant bony abnormality seen. IMPRESSION: RADIATION DOSE DELIVERED: Total DLP
== END 2021-03-12 11:25 | disposition home or self-care (01) ==
LOC: DIORS 11:24
PROVIDERS: PCP Internal Medicine; Referring Provider Internal Medicine; Visit Provider Student in an Organized Health Care Education/Training Program
DX: Z47.1 Aftercare following joint replacement surgery (principal); Z96.612 Presence of left artificial shoulder joint; M25.511 Pain in right shoulder
CPT/HCPCS: 20610; 73030; J1040

== ENCOUNTER 2021-06-11 10:15 | Outpatient (CLI) | payer MEDICARE, SELFPAY ==
--- NOTE | 2021-06-11 10:00 | DI.RAD_ITS ---
Exam(s) XR SHOULDER RT COMPLETE 2+V EXAM: XR SHOULDER RT COMPLETE 2+V CLINICAL HISTORY: right rotator cuff f/u. TECHNIQUE: 2D digital imaging was performed of the right shoulder. Two images were obtained. AP an d axillary views were obtained. COMPARISON: CR XR SHOULDER RT COMPLETE 2+V from 03/07/2019 FINDINGS: BONES: No acute fracture is present. No bony destructive lesion is seen. JOINTS: Marked degenerative changes of the glenohumeral joint with joint space narrowing and periarti cular spurring present. SOFT TISSUE: Normal. IMPRESSION: Osteoarthritis of the glenohumeral joint. DATA REPOSITORY: RADIATION DOSE DELIVERED:
--- NOTE | 2021-06-11 10:11 | DI.RAD_ITS ---
Exam(s) XR SHOULDER LT COMPLETE 2+V EXAM: XR SHOULDER LT COMPLETE 2+V CLINICAL HISTORY: left rotator cuff f/u. TECHNIQUE: 2D digital imaging was performed. 2D digital imaging was performed of the left shoulder. Two images were obtained. AP and Y views wer e obtained. COMPARISON: CR XR SHOULDER LT COMPLETE 2+V from 03/12/2021 FINDINGS: BONES: There are stable post operative changes present. No fracture or dislocation. JOINTS: The patient has a total reverse shoulder replacement. No evidence of hardware failure. SOFT TISSUE: Normal. IMPRESSION: Stable postoperative changes. DATA REPOSITORY: RADIATION DOSE DELIVERED:
== END 2021-06-11 10:16 | disposition home or self-care (01) ==
LOC: DIORS 10:15
PROVIDERS: PCP Internal Medicine; Referring Provider Internal Medicine; Visit Provider Student in an Organized Health Care Education/Training Program
DX: M25.511 Pain in right shoulder (principal); M19.011 Primary osteoarthritis, right shoulder; M75.102 Unspecified rotator cuff tear or rupture of left shoulder, not specified as traumatic; M19.012 Primary osteoarthritis, left shoulder; M75.101 Unspecified rotator cuff tear or rupture of right shoulder, not specified as traumatic
CPT/HCPCS: 99214; 73030

== ENCOUNTER → 2021-07-04 01:57 | Outpatient (CLI) | payer MEDICARE, SELFPAY ==
--- NOTE | 2021-07-04 12:55 | DI.CTLCSR_ITS ---
Exam(s) CT CHEST LUNG CANCER SCREEN EXAM: CT CHEST LUNG CANCER SCREEN CLINICAL HISTORY: SCREENING FOR LUNG CA, CURRENT SMOKER, F17.210. TECHNIQUE: Imaging Protocol: Low Dose Technique CONTRAST MATERIAL: None COMPARISON: CR CHEST 2 VIEWS PA,LAT from 05/31/2012 FINDINGS: CHEST: LUNGS: There is mild patchy infiltrate in the left lower lobe posterior basal segment. There is also noncalcified nodule in the posterior basal segment of the left lower lobe measuring 5 x 4 millimeter s. No other significant left lung findings nor pleural effusion. In the opposite-right lung there is a 4 millimeters pseudo nodule at the pleural reflection between t he upper and middle lobes. Mild benign-appearing increased markings-probable atelectasis noted in th e right upper lobe lowermost anterior segment.. There are no pleural effusions on either side. No s ignificant focal findings in the trachea and mainstem bronchi. MEDIASTINUM: There is no obvious hilar nor mediastinal adenopathy. CARDIAC: Heart size is normal. There is no pericardial effusion.Thoracic aorta is upper normal. OTHER: Left shoulder prosthesis noted. Advanced degenerative changes in the right shoulder glenohume ral joint. OSSEOUS: No significant osseous lesions.No fractures. IMPRESSION: 1. Mild patchy infiltrate and small 5 x 4 millimeter noncalcified nodule in the left lower lobe poste rior basal segment. Recommend follow-up CT scan in 6 months. 2. No pleural effusions nor intrathoracic adenopathy. 3. Lung RADS Cat 3 - Probably Benign: Probably benign finding(s) - short term follow-up suggested; in clude nodules with a low likelihood of becoming a clinically active cancer. Lung-RADS 1.0 CATEGORIES: Category 0 - Prior chest CT exam(s) being located for comparison. Category 1 - Annual screening in 12 months. No nodules or definitely benign nodules. Category 2 - Annual screening in 12 months. Benign appearance. Nodules with low likelihood of becomin g active cancer. Category 3 - 6-month follow-up. Probably benign. Short-term follow-up suggested. Nodules with low lik elihood of becoming active cancer. Category 4A - 3-month follow-up and CT/PET if >8 mm in size. Suspicious finding. Findings which requi re additional testing. Category 4B - Findings which require additional testing and tissue sampling. Category 4X - Category 3 or 4 nodules with additional features or imaging findings that increases the suspicion of malignancy. Modifier S- Potentially clinically significant findings (non lung cancer) RADIATION DOSE DELIVERED: 84.52mGy.cm Total DLP 1.84mGyCTDIvol DATA REPOSITORY: All CT scans at this facility are submitted to the National Radiology Data Registry (NRDR) Dose Index Registry (DIR) with the [employer] (ACR). RADIATION OPTIMIZATION: All CT scans at this facility use at least one of these dose optimization te chniques: automated exposure control; mA and/or kV adjustment per patient size (includes targeted exa ms where dose is matched to clinical indication); or iterative reconstruction.
== END ==
PROVIDERS: PCP Internal Medicine; Visit Provider Family Medicine
DX: F17.210 Nicotine dependence, cigarettes, uncomplicated (principal); Z12.2 Encounter for screening for malignant neoplasm of respiratory organs; R91.8 Other nonspecific abnormal finding of lung field
CPT/HCPCS: 71271

== ENCOUNTER 2021-10-09 17:58 | Outpatient (REF) | payer MEDICARE, SELFPAY ==
[2021-10-09 15:13] LABS: Anion Gap 5.2 mmol/L (3-11); BUN 18 mg/dL (7-18); CO2 29.8 mmol/L (21.0-32.0); Calcium 9.1 mg/dL (8.5-10.1); Chloride 108 mmol/L (98-107); Glucose 99 mg/dL (74-106); Potassium 5.4 mmol/L (3.5-5.1); Sodium 143 mmol/L (136-145)
== END 2021-10-09 17:59 | disposition home or self-care (01) ==
LOC: NCHCN 17:58
PROVIDERS: PCP Internal Medicine; Visit Provider Family Medicine
DX: R03.0 Elevated blood-pressure reading, without diagnosis of hypertension (principal)
CPT/HCPCS: 80048

== ENCOUNTER 2021-10-16 12:01 | Outpatient (REF) | payer MEDICARE, SELFPAY ==
[2021-10-16 16:05] LABS: Potassium 4.6 mmol/L (3.5-5.1)
== END 2021-10-16 12:02 | disposition home or self-care (01) ==
LOC: NCHCN 12:01
PROVIDERS: PCP Internal Medicine; Visit Provider Nurse Practitioner Family
DX: R03.0 Elevated blood-pressure reading, without diagnosis of hypertension
CPT/HCPCS: 84132

== ENCOUNTER 2021-10-28 11:05 | Outpatient (CLI) | payer MEDICARE, SELFPAY ==
--- NOTE | 2021-10-28 10:45 | DI.RAD_ITS ---
Exam(s) XR SHOULDER LT COMPLETE 2+V EXAM: XR SHOULDER LT COMPLETE 2+V CLINICAL HISTORY: left shoulder f/u. TECHNIQUE: 2D digital imaging was performed. COMPARISON: CR XR SHOULDER LT COMPLETE 2+V from 06/11/2021 FINDINGS: Two views Stable position alignment of the components of the reverse prosthesis. No fracture or loosening evid ent. IMPRESSION: DATA REPOSITORY: RADIATION DOSE DELIVERED:
== END 2021-10-28 11:06 | disposition home or self-care (01) ==
LOC: DIORS 11:05
PROVIDERS: PCP Internal Medicine; Referring Provider Internal Medicine; Visit Provider Student in an Organized Health Care Education/Training Program
DX: M19.012 Primary osteoarthritis, left shoulder (principal)
CPT/HCPCS: 99213; 73030

== ENCOUNTER 2021-12-15 21:26 | Outpatient (REF) | payer MEDICARE, SELFPAY ==
[2021-12-17 14:29] LABS: COVID-19 RT-PCR UVMMC Result Negative (Negative)
== END 2021-12-15 21:27 | disposition home or self-care (01) ==
LOC: LBN 21:26
PROVIDERS: PCP Internal Medicine; Visit Provider Nurse Practitioner Family
DX: Z20.822 Contact with and (suspected) exposure to COVID-19 (principal); J40 Bronchitis, not specified as acute or chronic
CPT/HCPCS: U0003; U0005

== ENCOUNTER → 2022-01-08 01:39 | Outpatient (CLI) | payer MEDICARE, SELFPAY ==
--- NOTE | 2022-01-08 | DI.CT_ITS ---
Exam(s) CT CHEST WO EXAM: CT CHEST WO CLINICAL HISTORY: LUNG NODULE R91.8, 6 MO FU. TECHNIQUE: Imaging protocol: Axial computed tomography images were obtained and coronal and sagittal reformatted images were created and reviewed. COMPARISON: CT CT CHEST LUNG CANCER SCREEN from 07/04/2021 FINDINGS: Tracheobronchial tree: Patent where visualized. Pulmonary parenchyma: There is no change in the triangular 5 mm nodule associated with the right brandy r fissure. There has been no change in the 5 mm nodule in the left lower lobe. No new pulmonary nod ules are present. There has been no significant change in the patchy infiltrate in the posterior bas al segment of the left lower lobe. No new infiltrates are seen. No architectural distortion. Mediastinum and Katty: No dominant adenopathy or fluid collection. The esophagus is unremarkable. Thyroid gland: Unremarkable. Pleura: No effusion or pneumothorax. Heart: The heart is not dilated. Mild coronary artery calcification. No pericardial effusion. Aorta: Thoracic aorta non-dilated. Mild atherosclerosis. Upper abdomen: Unremarkable. Lymph nodes: Within normal limits. Soft tissues: Unremarkable. Bones:Within normal limits for the patient's age. The patient has a left total shoulder replacement. IMPRESSION: 1. Stable pulmonary nodules. 2. Lung RADS Cat 2 - Benign Appearance / Behavior: Nodules with a very low likelihood of becoming a c linically active cancer due to size or lack of growth RADIATION DOSE DELIVERED: 495.75mGy.cm Total DLP 495.75mGy.cm Total DLP DATA REPOSITORY: All CT scans at this facility are submitted to the National Radiology Data Registry (NRDR) Dose Index Registry (DIR) with the [employer] (ACR). RADIATION OPTIMIZATION: All CT scans at this facility use at least one of these dose optimization te chniques: automated exposure control; mA and/or kV adjustment per patient size (includes targeted exa ms where dose is matched to clinical indication); or iterative reconstruction.
== END ==
PROVIDERS: PCP Internal Medicine; Visit Provider Family Medicine
DX: R91.8 Other nonspecific abnormal finding of lung field (principal)
CPT/HCPCS: 71250

== ENCOUNTER 2022-09-07 16:22 | Outpatient (CLI) | payer MEDICARE, SELFPAY ==
--- NOTE | 2022-09-07 | DI.RAD_ITS ---
Exam(s) XR TOE RT GREAT EXAM: XR TOE RT GREAT CLINICAL HISTORY: RT TOE PAIN, M79.674, AT 1ST MTP; ? STRESS FX. TECHNIQUE: 2D digital imaging was performed. COMPARISON: CR LEFT FOOT COMPLETE from 06/14/2014 FINDINGS: BONES: No acute fracture is present. No bony destructive lesion is seen. JOINTS: No dislocation present. Moderate degenerative changes 1st MTP joint. SOFT TISSUE: Mild swelling near 1st MTP joint and interphalangeal joint of the great toe. IMPRESSION: Degenerative changes. No acute abnormality. DATA REPOSITORY: RADIATION DOSE DELIVERED:
== END 2022-09-07 16:42 ==
LOC: DI 16:34
PROVIDERS: PCP Internal Medicine; Visit Provider Physician Assistant Medical
DX: M19.272 Secondary osteoarthritis, left ankle and foot (principal)
CPT/HCPCS: 73660

== ENCOUNTER → 2023-01-12 02:40 | Outpatient (CLI) | payer MEDICARE, SELFPAY ==
--- NOTE | 2023-01-12 08:00 | DI.CTLCSR_ITS ---
Exam(s) CT CHEST LUNG CANCER SCREEN EXAM: CT CHEST LUNG CANCER SCREEN CLINICAL HISTORY: CIGARETTE SMOKER, F17.210 TECHNIQUE: Imaging Protocol: Axial computed tomography images with coronal and sagittal reformatted images were created and reviewed COMPARISON: CT CT CHEST WO from 01/08/2022 FINDINGS: The patient has a left shoulder replacement which causes artifact. Tracheobronchial tree: Patent where visualized. Pulmonary parenchyma: No consolidation or dominant measurable mass. The scarring or infiltrate in the left lower lobe is unchanged. The scarring also seen in the inferior aspect of the right upper lobe is unchanged. Lung Nodules: There is a stable triangular 5 mm nodule associated with the right minor fissure. Ther e is also been no change in appearance of the 5 mm nodule in the left lung base posteriorly. No new pulmonary nodules are seen. Mediastinum and Katty: No dominant adenopathy or fluid collection. The esophagus is unremarkable. Thyroid gland: Unremarkable. Lymph nodes: Unremarkable. Pleura: No effusion or pneumothorax. Heart: The heart is not dilated. Mild 1 vessel coronary artery calcification is present. No pericard ial effusion. Aorta: The ascending thoracic aorta measures 4.2 x 3.9 cm.Mild atherosclerosis. Upper abdomen: Left nephrolithiasis. There is again seen dilatation of the left renal pelvis. Soft Tissues: Unremarkable. Bones: Within normal limits. Patient has a left total reverse shoulder replacement. There are degene rative changes seen in the right shoulder. IMPRESSION: 1. Stable pulmonary nodules. No new pulmonary nodules. 2. Thoracic ascending aorta measuring 4.2 x 3.9 cm. Lung RADS Cat 2 - Benign Appearance / Behavior: Nodules with a very low likelihood of becoming a clin ically active cancer due to size or lack of growth Lung-RADS 1.0 CATEGORIES: Category 0 - Prior chest CT exam(s) being located for comparison. Category 1 - Annual screening in 12 months. No nodules or definitely benign nodules. Category 2 - Annual screening in 12 months. Benign appearance. Nodules with low likelihood of becomin g active cancer. Category 3 - 6-month follow-up. Probably benign. Short-term follow-up suggested. Nodules with low lik elihood of becoming active cancer. Category 4A - 3-month follow-up and CT/PET if >8 mm in size. Suspicious finding. Findings which requi re additional testing. Category 4B - Findings which require additional testing and tissue sampling. Suspicious finding. Category 4X - Category 3 or 4 nodules with additional features or imaging findings that increases the suspicion of malignancy. Modifier S- Potentially clinically significant finding. (Non lung cancer) RADIATION DOSE DELIVERED: 80.28mGy.cm Total DLP 80.28mGy.cmTotal DLP DATA REPOSITORY: All CT scans at this facility are submitted to the National Radiology Data Registry (NRDR) Dose Index Registry (DIR) with the [employer] (ACR). RADIATION OPTIMIZATION: All CT scans at this facility use at least one of these dose optimization te chniques: automated exposure control; mA and/or kV adjustment per patient size (includes targeted exa ms where dose is matched to clinical indication); or iterative reconstruction.
== END ==
PROVIDERS: PCP Internal Medicine; Visit Provider Family Medicine
DX: F17.210 Nicotine dependence, cigarettes, uncomplicated (principal); Z12.2 Encounter for screening for malignant neoplasm of respiratory organs; R91.8 Other nonspecific abnormal finding of lung field
CPT/HCPCS: 71271

== ENCOUNTER 2023-01-13 08:43 | Outpatient (REF) | payer MEDICARE, SELFPAY ==
[2023-01-13 17:52] LABS: Abs Immature Grans 0.03 10^3/uL (0.0-0.06); Absolute Basophil Count 0.05 10^3/uL (0.0-0.2); Absolute Eosinophil Count 0.67 10^3/uL (0.0-0.7); Absolute Lymphocyte Count 1.88 10^3/uL (1.2-3.4); Absolute Monocyte Count 0.86 10^3/uL (0.1-0.8); Absolute Neutrophil Count 4.98 10^3/uL (1.2-6.7); Basophils % 0.6; Eosinophils % 7.9; HCT 51.8 % (40.0-50.0); HGB 16.4 g/dL (13.5-17.5); Immature Grans % 0.4; Lymphocytes % 22.2; MCH 28.8 pg (27.0-33.0); MCHC 31.7 % (32.0-36.0); MCV 91 fL (80-95); MPV 12.6 fL (8.0-11.0); Monocytes % 10.2; Neutrophils % 58.7; Platelet Count 169 10^3/uL (130-400); RBC 5.69 10^6/uL (4.36-5.78); RDW 13.3 % (11.8-14.1); WBC 8.47 10^3/uL (4.4-10.8)
[2023-01-13 18:24] LABS: ALT 33 U/L (16-63); AST 23 U/L (15-37); Albumin 3.9 g/dL (3.4-5.0); Alkaline Phosphatase 111 U/L (46-116); Anion Gap 8.1 mmol/L (3-11); BUN 21 mg/dL (7-18); Bilirubin, Total 0.4 mg/dL (0.2-1.0); CO2 27.9 mmol/L (21.0-32.0); CREATININE 1.1 mg/dL (0.70-1.30); Calcium 10.1 mg/dL (8.5-10.1); Calculated LDL 47 mg/dL (<100); Chloride 103 mmol/L (98-107); Cholesterol 107 mg/dL (<200); Estimated GFR 72.67 (mL/min/1.73m2); Glucose 109 mg/dL (74-106); HDL Cholesterol 46 mg/dL (40-60); Potassium 5.2 mmol/L (3.5-5.1); Sodium 139 mmol/L (136-145); Total Protein 7.2 g/dL (6.4-8.2); Triglyceride 71 mg/dL (<150)
== END 2023-01-13 08:44 | disposition home or self-care (01) ==
LOC: NCHCN 08:43
PROVIDERS: PCP Internal Medicine; Visit Provider Family Medicine
DX: R03.0 Elevated blood-pressure reading, without diagnosis of hypertension (principal); F33.8 Other recurrent depressive disorders; R79.89 Other specified abnormal findings of blood chemistry; Z86.73 Personal history of transient ischemic attack (TIA), and cerebral infarction without residual deficits
CPT/HCPCS: 80053; 80061; 85025

== ENCOUNTER 2023-10-11 15:05 | Outpatient (REF) | payer MEDICARE, SELFPAY ==
[2023-10-11 21:57] LABS: Hemoglobin A1C 5.7 % (<5.7)
[2023-10-11 22:02] LABS: ALT 36 U/L (16-63); AST 27 U/L (15-37); Albumin 3.8 g/dL (3.4-5.0); Alkaline Phosphatase 85 U/L (46-116); Anion Gap 8.8 mmol/L (3-11); BUN 19 mg/dL (7-18); Bilirubin, Total 0.6 mg/dL (0.2-1.0); CO2 26.2 mmol/L (21.0-32.0); CREATININE 0.8 mg/dL (0.70-1.30); Calcium 8.9 mg/dL (8.5-10.1); Chloride 106 mmol/L (98-107); Estimated GFR 95.21 (mL/min/1.73m2); Glucose 103 mg/dL (74-106); Potassium 4.3 mmol/L (3.5-5.1); Sodium 141 mmol/L (136-145); Total Protein 6.7 g/dL (6.4-8.2)
== END 2023-10-11 15:06 | disposition home or self-care (01) ==
LOC: NCHCN 15:05
PROVIDERS: PCP Internal Medicine; Visit Provider Family Medicine
DX: R73.09 Other abnormal glucose (principal); Z86.73 Personal history of transient ischemic attack (TIA), and cerebral infarction without residual deficits
CPT/HCPCS: 80053; 83036

== ENCOUNTER → 2023-10-20 07:57 | Outpatient (BNVA) | payer MEDICARE, SELFPAY | PROVIDERS: PCP Family Medicine; Referring Provider Family Medicine; Visit Provider Student in an Organized Health Care Education/Training Program | DX: M19.011 Primary osteoarthritis, right shoulder (principal); M19.012 Primary osteoarthritis, left shoulder | CPT/HCPCS: 20610; J1010 ==

== ENCOUNTER 2024-01-20 02:17 | Outpatient (CLI) | payer MEDICARE, SELFPAY ==
--- NOTE | 2024-01-20 10:11 | DI.CTLCSR_ITS ---
Exam(s) CT CHEST LUNG CANCER SCREEN EXAM: CT CHEST LUNG CANCER SCREEN CLINICAL HISTORY: CURRENT SMOKER, LUNG CANCER SCREENING, F17.210 TECHNIQUE: Imaging Protocol: Axial computed tomography images with coronal and sagittal reformatted images were created and reviewed COMPARISON: CT CT CHEST LUNG CANCER SCREEN from 01/12/2023 FINDINGS: Tracheobronchial tree: Patent where visualized. No bronchiectasis. Pulmonary parenchyma: No consolidation or dominant measurable mass. Atelectasis or scarring is seen i n the right middle lobe. The perifissural triangular nodule associated with the right minor fissure is unchanged. Lung Nodules: There is a stable 5 mm nodule in the left lung base (series 2, image 262). No new pulm onary nodules are present. Mediastinum and Katty: No dominant adenopathy or fluid collection. The esophagus is unremarkable. Thyroid gland: Unremarkable. Lymph nodes: Unremarkable. Pleura: No effusion or pneumothorax. Heart: The heart is not dilated. No coronary artery calcifications are seen. No pericardial effusion . Aorta: The ascending thoracic aorta measures 4 x 3.9 cm.Atherosclerotic calcification is present. Upper abdomen: Unremarkable. Soft Tissues: Unremarkable. Bones: Within normal limits. The patient has a left shoulder replacement. Degenerative changes are s een at the right glenohumeral joint. IMPRESSION: Stable left lower lobe pulmonary nodule. No new pulmonary nodules. Lung RADS Cat 2 - Benign Appearance / Behavior: Nodules with a very low likelihood of becoming a clin ically active cancer due to size or lack of growth Lung-RADS 1.0 CATEGORIES: Category 0 - Prior chest CT exam(s) being located for comparison. Category 1 - Annual screening in 12 months. No nodules or definitely benign nodules. Category 2 - Annual screening in 12 months. Benign appearance. Nodules with low likelihood of becomin g active cancer. Category 3 - 6-month follow-up. Probably benign. Short-term follow-up suggested. Nodules with low lik elihood of becoming active cancer. Category 4A - 3-month follow-up and CT/PET if >8 mm in size. Suspicious finding. Findings which requi re additional testing. Category 4B - Findings which require additional testing and tissue sampling. Suspicious finding. Category 4X - Category 3 or 4 nodules with additional features or imaging findings that increases the suspicion of malignancy. Modifier S- Potentially clinically significant finding. (Non lung cancer) RADIATION DOSE DELIVERED: 37.47mGy.cm Total DLP 37.47mGy.cmTotal DLP DATA REPOSITORY: All CT scans at this facility are submitted to the National Radiology Data Registry (NRDR) Dose Index Registry (DIR) with the [employer] (ACR). RADIATION OPTIMIZATION: All CT scans at this facility use at least one of these dose optimization te chniques: automated exposure control; mA and/or kV adjustment per patient size (includes targeted exa ms where dose is matched to clinical indication); or iterative reconstruction.
== END 2024-01-20 02:37 ==
LOC: DI 02:17
PROVIDERS: PCP Family Medicine; Visit Provider Family Medicine
DX: F17.210 Nicotine dependence, cigarettes, uncomplicated (principal); Z12.2 Encounter for screening for malignant neoplasm of respiratory organs; R91.1 Solitary pulmonary nodule
CPT/HCPCS: 71271

== ENCOUNTER 2024-07-25 11:04 | Outpatient (CLI) | payer MEDICARE, OTHER, SELFPAY ==
--- NOTE | 2024-07-25 10:00 | DI.RAD_ITS ---
Exam(s) XR SHOULDER RT COMPLETE 2+V EXAM: XR SHOULDER RT COMPLETE 2+V CLINICAL HISTORY: RIGHT SHOULDER PAIN. TECHNIQUE: 2D digital imaging was performed of the right shoulder. Two images were obtained. Grash ey and axillary views were obtained. COMPARISON: CR XR SHOULDER RT COMPLETE 2+V from 06/11/2021 FINDINGS: BONES: No acute fracture is present. No bony destructive lesion is seen. JOINTS: No dislocation present. There are marked degenerative changes seen at the glenohumeral joint characterized by joint space narrowing and osteophytes. Subchondral sclerosis is noted. The acromio clavicular joint is well maintained. SOFT TISSUE: Normal. IMPRESSION: Marked degenerative changes at the glenohumeral joint. DATA REPOSITORY: RADIATION DOSE DELIVERED:
== END 2024-07-25 11:05 | disposition home or self-care (01) ==
LOC: DIORS 11:05
PROVIDERS: PCP Family Medicine; Referring Provider Family Medicine; Visit Provider Student in an Organized Health Care Education/Training Program
DX: M19.011 Primary osteoarthritis, right shoulder (principal)
CPT/HCPCS: 20610; 99213; J1010; 73030

== ENCOUNTER 2024-12-06 14:42 | Outpatient (REF) | payer MEDICARE, SELFPAY ==
[2024-12-06 15:45] LABS: Hemoglobin A1C 5.3 % (<5.7)
[2024-12-06 17:14] LABS: Anion Gap 7.8 mmol/L (3-11); BUN 15 mg/dL (7-18); CO2 26.2 mmol/L (21.0-32.0); Calcium 9.2 mg/dL (8.5-10.1); Chloride 106 mmol/L (98-107); Estimated GFR 94.62 (mL/min/1.73m2); Glucose 102 mg/dL (74-106); Potassium 4.6 mmol/L (3.5-5.1); Sodium 140 mmol/L (136-145)
[2024-12-07 18:40] LABS: LDL CHOLESTEROL 47 mg/dL (<100)
== END 2024-12-06 14:43 | disposition home or self-care (01) ==
LOC: NCHCN 14:42
PROVIDERS: PCP Family Medicine; Visit Provider Family Medicine
DX: Z86.73 Personal history of transient ischemic attack (TIA), and cerebral infarction without residual deficits (principal)
CPT/HCPCS: 80048; 83721; 83036

== ENCOUNTER 2024-12-27 10:16 | Outpatient (CLI) | payer MEDICARE, OTHER, SELFPAY ==
--- NOTE | 2024-12-27 | DI.CTLCSR_ITS ---
Exam(s) CT CHEST LUNG CANCER SCREEN EXAM: CT CHEST LUNG CANCER SCREEN CLINICAL HISTORY: TOBACCO DEPENDENCE CIGARETTES F17.210 TECHNIQUE: Imaging Protocol: Axial computed tomography images with coronal and sagittal reformatted images were created and reviewed. Lung Computer Aided Detection (CAD) was utilized. COMPARISON: CT CT CHEST LUNG CANCER SCREEN from 01/12/[address] CHEST LUNG CANCER SCREEN from 01/20/2024 FINDINGS: There is artifact from the patient's left shoulder arthroplasty. Tracheobronchial tree: Patent where visualized. No bronchiectasis. Pulmonary parenchyma: No consolidation or dominant measurable mass. There is a stable perifissural nodule associated with the right minor fissure. There is stable mild scarring in the right middle lobe and the left lower lobe. Lung Nodules: There is a stable 5 mm nodule in the left lower lobe (series 4, image 125). There are no new pulmonary nodules. Mediastinum and Katty: No dominant adenopathy or fluid collection. The esophagus is unremarkable. Thyroid gland: Unremarkable. Lymph nodes: Unremarkable. Pleura: No effusion or pneumothorax. Heart: The heart is not dilated. No coronary artery calcifications are seen. No pericardial effusion. Aorta: Thoracic aorta non-dilated.There is mild atherosclerotic calcification present. Upper abdomen: Unremarkable. Soft Tissues: Unremarkable. Bones: Within normal limits. IMPRESSION: Stable 5 mm left lower lobe pulmonary nodule. No new pulmonary nodules. Lung RADS Cat 2 - Benign Appearance / Behavior: Nodules with a very low likelihood of becoming a clinically active cancer due to size or lack of growth Lung-RADS 1.0 CATEGORIES: Category 0 - Prior chest CT exam(s) being located for comparison. Category 1 - Annual screening in 12 months. No nodules or definitely benign nodules. Category 2 - Annual screening in 12 months. Benign appearance. Nodules with low likelihood of becoming active cancer. Category 3 - 6-month follow-up. Probably benign. Short-term follow-up suggested. Nodules with low likelihood of becoming active cancer. Category 4A - 3-month follow-up and CT/PET if >8 mm in size. Suspicious finding. Findings which require additional testing. Category 4B - Findings which require additional testing and tissue sampling. Suspicious finding. Category 4X - Category 3 or 4 nodules with additional features or imaging findings that increases the suspicion of malignancy. Modifier S- Potentially clinically significant finding. (Non lung cancer) RADIATION DOSE DELIVERED: 37.27mGy.cm Total DLP 37.27mGy.cmTotal DLP DATA REPOSITORY: All CT scans at this facility are submitted to the National Radiology Data Registry (NRDR) Dose Index Registry (DIR) with the [employer] (ACR). RADIATION OPTIMIZATION: All CT scans at this facility use at least one of these dose optimization techniques: automated exposure control; mA and/or kV adjustment per patient size (includes targeted exams where dose is matched to clinical indication); or iterative reconstruction.
--- NOTE | 2024-12-27 07:00 | DI.US_ITS ---
Exam(s) US AAA SCREENING EXAM: US AAA SCREENING CLINICAL HISTORY: TOBACCO DEPENDENCE CIGARETTES F17.210 COMPARISON: No exams were available for comparison FINDINGS: Abdominal Aorta: Proximal: 2.2 x 2.2 cm Mid: 2.1 x 2.0 cm Distal: 1.9 x 2.1 cm Iliac's: Right: 1.3 x 1.2 cm Left: 1.2 x 1.3 cm No significant atherosclerotic disease is seen. IMPRESSION: No evidence of abdominal aortic aneurysm. DATA REPOSITORY:
== END 2024-12-27 10:36 ==
PROVIDERS: PCP Family Medicine; Visit Provider Family Medicine
DX: Z13.6 Encounter for screening for cardiovascular disorders (principal); F17.210 Nicotine dependence, cigarettes, uncomplicated; Z12.2 Encounter for screening for malignant neoplasm of respiratory organs
CPT/HCPCS: 71271; 76706

== ENCOUNTER → 2025-02-21 09:57 | Outpatient (BNVA) | payer MEDICARE, OTHER, SELFPAY | PROVIDERS: PCP Family Medicine; Referring Provider Family Medicine; Visit Provider Student in an Organized Health Care Education/Training Program | DX: M19.011 Primary osteoarthritis, right shoulder (principal) | CPT/HCPCS: 20610; J1010 ==